=== PATIENT | female | born 1960 | race Caucasian/White ===

== ENCOUNTER 2018-01-19 14:15 | Emergency (ER) | payer BC ==
[2018-01-19] MEDS ORDERED: B-1250 MCG PO (17:48)
[2018-01-19] MEDS ORDERED: VITAMIN D PO (17:48)
[2018-01-19] MEDS ORDERED: POTASSI19 PO (17:48)
[2018-01-19] MEDS ORDERED: VITAMI16 PO (17:49)
[2018-01-19] MEDS ORDERED: TORADOL PO (18:21)
[2018-01-19 18:24] VITALS: BP 140/78
== END 2018-01-19 18:27 | disposition home or self-care (01) | DRG 914 ==
LOC: ED 14:15
DX: S09.11XA Strain of muscle and tendon of head, initial encounter (principal); X50.0XXA Overexertion from strenuous movement or load, initial encounter; Y92.9 Unspecified place or not applicable

== ENCOUNTER 2020-10-04 01:04 | Emergency (ER) | payer SELFPAY ==
[~2020-10-04] VITALS: Ht 162.6 cm; Wt 68.0 kg
[~2020-10-04 01:04] MED LIST: B-1250 MCG PO; POTASSI19 PO; TORADOL PO; VITAMI16 PO; VITAMIN D PO
[2020-10-04] MEDS ORDERED: ONDANSETRON HCL8 MG PO (02:03)
[2020-10-04] MEDS ORDERED: PROTONIX40 M2 PO (02:03)
[2020-10-04 02:25] LABS: HEMATOCRIT 41.2 % (37.0-47.0); HEMOGLOBIN 12.6 g/dl (12.0-16.0); IMMATURE GRANULOCYTES 0.5 % (0.0-5.0); MEAN CELL VOLUME 88.8 fL CALC (80.0-100.0); MEAN CORPUSCULAR HGB 27.2 pG CALC (26.0-32.0); MEAN CORPUSCULAR HGB CONC 30.6 g/dL CAL (32.0-36.0); NEUT# 18.14 thou/uL (2.00-7.15); RED BLOOD COUNT 4.64 mill/uL (4.20-5.60); RED CELL DISTRI WIDTH 14.6 % (11.5-15.5)
[2020-10-04 02:39] LABS: ALBUMIN 3.6 g/dL (3.2-5.0); ALKALINE PHOSPHATASE 235 u/l (38-126); AMYLASE 57 u/l (30-110); ANION GAP 13 (6-22 (CALC)); BILIRUBIN, TOTAL 0.4 mg/dL (0.0-1.4); BUN 13 mg/dL (8-23); BUN/CREATININE RATIO 13 (12-20 (CALC)); CARBON DIOXIDE 28 mmol/l (22-30); CHLORIDE 100 mmol/l (95-108); GFR 56 ML/MIN (>=60 (CALC)); GFR FOR AFR.AMER. > 60 ML/MIN (>=60 (CALC)); LIPASE 46 u/l (23-300); POTASSIUM 4.8 mmol/l (3.5-5.1); SGOT/AST 27 u/l (9-36); SODIUM 136 mmol/l (137-146); TOTAL PROTEIN 7.2 g/dL (6.3-8.2)
[2020-10-04 02:51] LABS: MYOGLOBIN 18 ng/mL (0 - 62)
[2020-10-04 04:03] LABS: URINE BILIRUBIN - DIPSTICK NEGATIVE (NEGATIVE); URINE BLOOD DIPSTICK TRACE-INTACT (NEGATIVE); URINE COLOR YELLOW; URINE GLUCOSE - DIPSTICK NEGATIVE (NEGATIVE); URINE KETONE NEGATIVE (NEGATIVE); URINE PROTEIN - DIPSTICK NEGATIVE (NEG-TRACE); URINE SPECIFIC GRAVITY <=1.005; URINE UROBILINOGEN - DIPSTICK 0.2 E.U./dL (0.2)
[2020-10-04 04:09] LABS: URINE NITRITE - DIPSTICK POSITIVE (Negative)
[2020-10-04 04:10] LABS: URINE BACTERIA MANY hpf; URINE EPITHELIAL CELLS FEW EPI/hpf (0-FEW); URINE LEUK ESTERASE NEGATIVE (NEGATIVE)
[2020-10-04 08:06] VITALS: BP 114/745
--- NOTE | 2020-10-06 10:47 | NUR ---
Final urine culture results were sent via fax [phone] to the nurse at [facility]
== END 2020-10-04 09:31 | disposition short-term general hospital (02) | DRG 295 ==
LOC: ED 01:04
PROVIDERS: Emergency Medicine
DX: I82.220 Acute embolism and thrombosis of inferior vena cava (principal); N28.89 Other specified disorders of kidney and ureter; D72.829 Elevated white blood cell count, unspecified; R91.8 Other nonspecific abnormal finding of lung field; F17.200 Nicotine dependence, unspecified, uncomplicated; Z20.828 Contact with and (suspected) exposure to other viral communicable diseases
CPT/HCPCS: J1650; Q9967; S0164

== ENCOUNTER 2020-12-04 21:09 | Inpatient (IN) | payer MEDICAID ==
[~2020-12-04] VITALS: Ht 157.5 cm; Wt 57.0 kg
[~2020-12-04 21:09] MED LIST changes: +COMPAZINE10 MG PO; +DECADRON4 M1 PO; +ELIQUIS5 MG PO; +GABAPENTIN100 MG PO; +OMEPRAZOLE DR20 MG PO; +ONDANSETRON HCL8 MG PO; +PERCOCET 5/321 COMBO PO
[2020-12-04 22:40] LABS: HEMATOCRIT 31.9 % (37.0-47.0); HEMOGLOBIN 9.3 g/dl (12.0-16.0); IMMATURE GRANULOCYTES 1.1 % (0.0-5.0); MEAN CELL VOLUME 94.7 fL CALC (80.0-100.0); MEAN CORPUSCULAR HGB 27.6 pG CALC (26.0-32.0); MEAN CORPUSCULAR HGB CONC 29.2 g/dL CAL (32.0-36.0); NEUT# 12.67 thou/uL (2.00-7.15); RED BLOOD COUNT 3.37 mill/uL (4.20-5.60); RED CELL DISTRI WIDTH 16.9 % (11.5-15.5)
[2020-12-04 22:56] LABS: INTERNATIONAL NORMALIZED RATIO 1.2 RATIO (0.7-1.3); PROTHROMBIN TIME 11.8 SECONDS (9.0-12.5)
[2020-12-04 23:01] LABS: ALKALINE PHOSPHATASE 177 u/l (38-126); BUN 28 mg/dL (8-23); BUN/CREATININE RATIO 30 (12-20 (CALC)); CARBON DIOXIDE 19 mmol/l (22-30); CHLORIDE 100 mmol/l (95-108); CREATININE 0.9 mg/dL (0.5-1.0); ETHYL ALCOHOL 0 mg/dl (0-30); GFR > 60 ML/MIN (>=60 (CALC)); GFR FOR AFR.AMER. > 60 ML/MIN (>=60 (CALC)); SGOT/AST 56 u/l (9-36); SODIUM 126 mmol/l (137-146); TOTAL PROTEIN 5.9 g/dL (6.3-8.2)
[2020-12-04 23:02] LABS: ANION GAP 12 (6-22 (CALC)); POTASSIUM 5.3 mmol/l (3.5-5.1)
[2020-12-04 23:14] LABS: MYOGLOBIN 34 ng/mL (0 - 62)
[2020-12-05] VITALS (32 sets, daily range): BP systolic 84–134; BP diastolic 48–87
[2020-12-05] MEDS ORDERED: MORPHINE SUL15 MG PO (01:30)
[2020-12-05] MEDS ORDERED: OLANZAPINE10 MG PO (01:31)
[2020-12-05] MEDS ORDERED: COMPAZINE10 MG PO (01:33)
[2020-12-05] MEDS ORDERED: VITAMIN D22000 UNIT PO (01:35)
[2020-12-05 02:05] LABS: URINE BILIRUBIN - DIPSTICK NEGATIVE (NEGATIVE); URINE BLOOD DIPSTICK NEGATIVE (NEGATIVE); URINE COLOR YELLOW; URINE GLUCOSE - DIPSTICK NEGATIVE (NEGATIVE); URINE KETONE NEGATIVE (NEGATIVE); URINE LEUK ESTERASE NEGATIVE (NEGATIVE); URINE NITRITE - DIPSTICK NEGATIVE (Negative); URINE PROTEIN - DIPSTICK NEGATIVE (NEG-TRACE); URINE SPECIFIC GRAVITY 1.015; URINE UROBILINOGEN - DIPSTICK 0.2 E.U./dL (0.2)
[2020-12-05] MEDS ORDERED: [UNRECOGNIZED DRUG - OTHER] (02:09)
[2020-12-05 09:58] LABS: HEMATOCRIT 27.1 % (37.0-47.0); HEMOGLOBIN 8.1 g/dl (12.0-16.0); IMMATURE GRANULOCYTES 3.7 % (0.0-5.0); MEAN CELL VOLUME 91.6 fL CALC (80.0-100.0); MEAN CORPUSCULAR HGB 27.4 pG CALC (26.0-32.0); MEAN CORPUSCULAR HGB CONC 29.9 g/dL CAL (32.0-36.0); NEUT# 10.94 thou/uL (2.00-7.15); RED BLOOD COUNT 2.96 mill/uL (4.20-5.60); RED CELL DISTRI WIDTH 16.5 % (11.5-15.5)
[2020-12-05 10:22] LABS: ANION GAP 10 (6-22 (CALC)); BUN 20 mg/dL (8-23); BUN/CREATININE RATIO 27 (12-20 (CALC)); CARBON DIOXIDE 20 mmol/l (22-30); CHLORIDE 108 mmol/l (95-108); CREATININE 0.7 mg/dL (0.5-1.0); GFR > 60 ML/MIN (>=60 (CALC)); GFR FOR AFR.AMER. > 60 ML/MIN (>=60 (CALC)); POTASSIUM 4.3 mmol/l (3.5-5.1)
[2020-12-05 10:35] LABS: SODIUM 134 mmol/l (137-146)
[2020-12-06] VITALS (18 sets, daily range): BP systolic 85–151; BP diastolic 51–83
[2020-12-06 06:23] LABS: HEMATOCRIT 21.4 % (37.0-47.0); IMMATURE GRANULOCYTES 2.1 % (0.0-5.0); MEAN CELL VOLUME 90.3 fL CALC (80.0-100.0); MEAN CORPUSCULAR HGB 27.4 pG CALC (26.0-32.0); MEAN CORPUSCULAR HGB CONC 30.4 g/dL CAL (32.0-36.0); NEUT# 4.68 thou/uL (2.00-7.15); RED BLOOD COUNT 2.37 mill/uL (4.20-5.60); RED CELL DISTRI WIDTH 16.6 % (11.5-15.5)
[2020-12-06 06:39] LABS: ANION GAP 7 (6-22 (CALC)); BUN 8 mg/dL (8-23); BUN/CREATININE RATIO 16 (12-20 (CALC)); CARBON DIOXIDE 20 mmol/l (22-30); CHLORIDE 109 mmol/l (95-108); CREATININE 0.5 mg/dL (0.5-1.0); GFR > 60 ML/MIN (>=60 (CALC)); GFR FOR AFR.AMER. > 60 ML/MIN (>=60 (CALC)); POTASSIUM 4.3 mmol/l (3.5-5.1); SODIUM 132 mmol/l (137-146)
[2020-12-06 06:50] LABS: HEMOGLOBIN 6.5 g/dl (12.0-16.0)
[2020-12-07 01:00] VITALS: BP 119/60
[2020-12-07 03:00] VITALS: BP 103/59
[2020-12-07 05:00] VITALS: BP 108/58
[2020-12-07 05:19] LABS: HEMATOCRIT 26.5 % (37.0-47.0); HEMOGLOBIN 8.2 g/dl (12.0-16.0); MEAN CELL VOLUME 90.8 fL CALC (80.0-100.0); MEAN CORPUSCULAR HGB 28.1 pG CALC (26.0-32.0); MEAN CORPUSCULAR HGB CONC 30.9 g/dL CAL (32.0-36.0); RED BLOOD COUNT 2.92 mill/uL (4.20-5.60)
[2020-12-07 05:40] LABS: ANION GAP 7 (6-22 (CALC)); BUN 7 mg/dL (8-23); BUN/CREATININE RATIO 12 (12-20 (CALC)); CARBON DIOXIDE 21 mmol/l (22-30); CHLORIDE 109 mmol/l (95-108); CREATININE 0.6 mg/dL (0.5-1.0); GFR > 60 ML/MIN (>=60 (CALC)); GFR FOR AFR.AMER. > 60 ML/MIN (>=60 (CALC)); POTASSIUM 4.3 mmol/l (3.5-5.1); SODIUM 132 mmol/l (137-146)
[2020-12-07 07:00] VITALS: BP 136/71
[2020-12-07 08:00] VITALS: BP 123/75
[2020-12-07 09:52] VITALS: BP 119/77
== END 2020-12-07 10:30 | disposition home health service (06) | DRG 91 ==
LOC: ED 21:09 → ED-I 12-05 02:41 → ED 12-05 03:22 → ICU 12-05 03:23
PROVIDERS: Family Medicine; Internal Medicine; ADMIT Internal Medicine; ATTEND Internal Medicine
PROC: 30233N1 Transfusion of Nonautologous Red Blood Cells into Peripheral Vein, Percutaneous Approach (ICD-10-PCS; principal; 2020-12-06)
DX: G92 Toxic encephalopathy (principal); G93.41 Metabolic encephalopathy; E87.1 Hypo-osmolality and hyponatremia; C34.01 Malignant neoplasm of right main bronchus; C79.70 Secondary malignant neoplasm of unspecified adrenal gland; T40.2X5A Adverse effect of other opioids, initial encounter; T40.7X5A Adverse effect of cannabis (derivatives), initial encounter; I95.9 Hypotension, unspecified; E86.0 Dehydration; E87.5 Hyperkalemia; D64.81 Anemia due to antineoplastic chemotherapy; D70.1 Agranulocytosis secondary to cancer chemotherapy; T45.1X5A Adverse effect of antineoplastic and immunosuppressive drugs, initial encounter; Z79.01 Long term (current) use of anticoagulants; Z87.891 Personal history of nicotine dependence; Z79.899 Other long term (current) drug therapy; Z86.718 Personal history of other venous thrombosis and embolism
CPT/HCPCS: J1442; J1650; P9016

== ENCOUNTER 2020-12-17 13:34 | Emergency (ER) | payer MEDICAID ==
[~2020-12-17] VITALS: Ht 157.5 cm; Wt 61.2 kg
[~2020-12-17 13:34] MED LIST changes: +MORPHINE SUL15 MG PO; +OLANZAPINE10 MG PO; +VITAMIN D22000 UNIT PO; +[UNRECOGNIZED DRUG - OTHER]
[2020-12-17 15:06] LABS: IMMATURE GRANULOCYTES 0.7 % (0.0-5.0); MEAN CORPUSCULAR HGB 27.3 pG CALC (26.0-32.0); MEAN CORPUSCULAR HGB CONC 29.7 g/dL CAL (32.0-36.0); NEUT# 3.75 thou/uL (2.00-7.15); RED BLOOD COUNT 3.74 mill/uL (4.20-5.60); RED CELL DISTRI WIDTH 17.2 % (11.5-15.5)
[2020-12-17 15:16] LABS: HEMATOCRIT 34.4 % (37.0-47.0); HEMOGLOBIN 10.2 g/dl (12.0-16.0)
[2020-12-17 15:23] LABS: ALBUMIN 2.6 g/dL (3.2-5.0); ANION GAP 11 (6-22 (CALC)); CARBON DIOXIDE 25 mmol/l (22-30); CHLORIDE 106 mmol/l (95-108); CREATININE 0.7 mg/dL (0.5-1.0); GFR > 60 ML/MIN (>=60 (CALC)); GFR FOR AFR.AMER. > 60 ML/MIN (>=60 (CALC)); POTASSIUM 4.3 mmol/l (3.5-5.1); SGOT/AST 46 u/l (9-36); SODIUM 137 mmol/l (137-146); TOTAL PROTEIN 5.5 g/dL (6.3-8.2)
[2020-12-17 15:43] LABS: BUN 8 mg/dL (8-23); BUN/CREATININE RATIO 11 (12-20 (CALC))
[2020-12-17 15:44] LABS: ALKALINE PHOSPHATASE 368 u/l (38-126); BILIRUBIN, TOTAL 0.2 mg/dL (0.0-1.4)
[2020-12-17 16:44] VITALS: BP 154/81
== END 2020-12-17 16:43 | disposition home or self-care (01) ==
LOC: ED 13:34
DX: K12.1 Other forms of stomatitis (principal); C34.90 Malignant neoplasm of unspecified part of unspecified bronchus or lung; Z79.899 Other long term (current) drug therapy

== ENCOUNTER 2020-12-24 17:26 | Emergency (ER) | payer MEDICAID ==
[~2020-12-24] VITALS: Ht 157.5 cm; Wt 70.0 kg
[2020-12-24 20:03] LABS: URINE BILIRUBIN - DIPSTICK NEGATIVE (NEGATIVE); URINE BLOOD DIPSTICK NEGATIVE (NEGATIVE); URINE COLOR YELLOW; URINE GLUCOSE - DIPSTICK NEGATIVE (NEGATIVE); URINE KETONE NEGATIVE (NEGATIVE); URINE LEUK ESTERASE TRACE (NEGATIVE); URINE PROTEIN - DIPSTICK NEGATIVE (NEG-TRACE); URINE UROBILINOGEN - DIPSTICK 0.2 E.U./dL (0.2)
[2020-12-24 20:13] LABS: URINE NITRITE - DIPSTICK POSITIVE (Negative)
[2020-12-24] MEDS ORDERED: CLARITIN10 M2 PO (20:13)
[2020-12-24 20:17] LABS: URINE BACTERIA MODERATE hpf
[2020-12-24 20:23] LABS: ALKALINE PHOSPHATASE 269 u/l (38-126); ANION GAP 12 (6-22 (CALC)); BUN 13 mg/dL (8-23); BUN/CREATININE RATIO 22 (12-20 (CALC)); CARBON DIOXIDE 23 mmol/l (22-30); CHLORIDE 108 mmol/l (95-108); CREATININE 0.6 mg/dL (0.5-1.0); GFR > 60 ML/MIN (>=60 (CALC)); GFR FOR AFR.AMER. > 60 ML/MIN (>=60 (CALC)); POTASSIUM 4.8 mmol/l (3.5-5.1); SODIUM 138 mmol/l (137-146); TOTAL PROTEIN 6.2 g/dL (6.3-8.2)
[2020-12-24 20:24] LABS: ALBUMIN 3.3 g/dL (3.2-5.0); BILIRUBIN, TOTAL 0.5 mg/dL (0.0-1.4); SGOT/AST 93 u/l (9-36)
[2020-12-24 20:50] LABS: HEMATOCRIT 32.9 % (37.0-47.0); HEMOGLOBIN 9.7 g/dl (12.0-16.0); IMMATURE GRANULOCYTES 18.6 % (0.0-5.0); MEAN CELL VOLUME 94.3 fL CALC (80.0-100.0); MEAN CORPUSCULAR HGB 27.8 pG CALC (26.0-32.0); MEAN CORPUSCULAR HGB CONC 29.5 g/dL CAL (32.0-36.0); PLATELET COUNT 561 thou/uL (130-400); RED BLOOD COUNT 3.49 mill/uL (4.20-5.60)
[2020-12-24] MEDS ORDERED: CIPROFLOXACN500 MG PO (21:13)
[2020-12-24 21:30] VITALS: BP 116/70
[2020-12-24] MEDS ORDERED: NEULASTA6 MG/0.6 M IM (21:46)
[2020-12-24 22:21] LABS: BAND 0 % (0-8)
[2020-12-25 08:39] LABS: MANUAL DIFFERENTIAL YES
== END 2020-12-24 21:35 | disposition home or self-care (01) ==
LOC: ED 17:26
PROVIDERS: Emergency Medicine
DX: D72.829 Elevated white blood cell count, unspecified (principal); N39.0 Urinary tract infection, site not specified; B96.1 Klebsiella pneumoniae [K. pneumoniae] as the cause of diseases classified elsewhere; C34.90 Malignant neoplasm of unspecified part of unspecified bronchus or lung; C79.9 Secondary malignant neoplasm of unspecified site; G89.3 Neoplasm related pain (acute) (chronic)

== ENCOUNTER 2021-02-06 20:38 | Observation (INO) | payer MEDICAID ==
[~2021-02-06] VITALS: Ht 157.5 cm; Wt 56.0 kg
[~2021-02-06 20:38] MED LIST changes: +CIPROFLOXACN500 MG PO; +CLARITIN10 M2 PO; +NEULASTA6 MG/0.6 M IM
--- NOTE | 2021-02-06 21:00 | NUR ---
PT WAS WHEELED TO AND PLACED IN BED.
--- NOTE | 2021-02-06 21:20 | NUR ---
PT RESTING HISTORY OF CA, SISTER AT BEDSIDE WILL MEDICAT ORDERED AND MONITOR B/P WELL
--- NOTE | 2021-02-06 21:31 | NUR ---
B/P IMPROVED, CLONIDINE HELD AT THIS TIME PER V.O
--- NOTE | 2021-02-06 21:50 | NUR ---
mdin to see pt once feeling improved, planned D/C, pt verbalizes agreeance and understanding
--- NOTE | 2021-02-06 22:56 | NUR ---
PT STATES FEELING A LITTLE BETTER SINCE HER NAP, PT EDUCATED REGARDING THE IMPORTANCE OF PO INTAKE WITH MEDICATIONS ESPECIALLY OPIATE PAIN MEDS AND CHEMOTHERAPEUTIC AGENTS, ETC..PT VERBALIZES UNDERSTANDING.
--- NOTE | 2021-02-06 23:24 | NUR ---
PT C/O MILD NAUSEA AGAIN, MD AWARE, WILL MEDICATE ORDERED
--- NOTE | 2021-02-06 23:25 | NUR ---
PT TOOK PO MEDICATION FOR NAUSEA THEN DRINK APPROX 80 ML OF LEMON SANTO DOMINGO SODA AND WITHIN 2-3 MIN PROMPTLY VOMITED.
--- NOTE | 2021-02-06 23:45 | NUR ---
PT CONTINUES TO C/O NAUSEA, SISTER ANXIOUS STATING SHE IS JUST WORRIED AND GOES ON ABOUT SHE CAN USUALLY CONTROL IT ETC...MULTIPLE ATTEMPTS TO EDUCATE REGARDING CANCER AND N/V DISEASE PROCESS.
[2021-02-07 00:37] LABS: HEMATOCRIT 33.1 % (37.0-47.0); HEMOGLOBIN 10.1 g/dl (12.0-16.0); IMMATURE GRANULOCYTES 0.3 % (0.0-5.0); MEAN CELL VOLUME 98.2 fL CALC (80.0-100.0); MEAN CORPUSCULAR HGB CONC 30.5 g/dL CAL (32.0-36.0); NEUT# 6.64 thou/uL (2.00-7.15); RED BLOOD COUNT 3.37 mill/uL (4.20-5.60); RED CELL DISTRI WIDTH 18.6 % (11.5-15.5)
[2021-02-07 00:55] LABS: ALBUMIN 3.2 g/dL (3.2-5.0); ALKALINE PHOSPHATASE 146 u/l (38-126); BILIRUBIN, TOTAL 0.7 mg/dL (0.0-1.4); BUN 5 mg/dL (8-23); BUN/CREATININE RATIO 8 (12-20 (CALC)); CARBON DIOXIDE 23 mmol/l (22-30); CHLORIDE 108 mmol/l (95-108); CREATININE 0.6 mg/dL (0.5-1.0); GFR > 60 ML/MIN (>=60 (CALC)); GFR FOR AFR.AMER. > 60 ML/MIN (>=60 (CALC)); LIPASE 82 u/l (23-300); SGOT/AST 61 u/l (9-36); SODIUM 137 mmol/l (137-146); TOTAL PROTEIN 5.8 g/dL (6.3-8.2)
[2021-02-07 01:04] LABS: ANION GAP 10 (6-22 (CALC)); POTASSIUM 3.7 mmol/l (3.5-5.1)
--- NOTE | 2021-02-07 01:08 | NUR ---
PORT ACCESSED USING STERILE TECHNIQUE EARLIER WITH EXCELLENT AND IMMEDIATE ASPIRATE NOTED, LABS DRAWN AND IVF STARTED ORDERED , PT AND SISTER AWARE OF PLANNED ADMISSION.
--- NOTE | 2021-02-07 02:14 | NUR ---
PT STATES SHE IS FEELING MUCH BETTER, COVID SWAB COMPLETED, PT TOLERATED WELL, AWAITING RESULTS FOR PLANNED ADMISSION
--- NOTE | 2021-02-07 03:00 | NUR ---
REPORT CALLED TO MED [facility]. ROOM [id number] ASSIGNED.
--- NOTE | 2021-02-07 03:03 | NUR ---
PT TRANSPORTED TO [facility], ALL BELONGINGS SENT WITH PT.
--- NOTE | 2021-02-07 03:04 | NUR ---
PT ARRIVE ON THE FLOOR VIA STRETCHER. AMBULATE X 1 ASSIST. PORT R SUBCLAVIN. NO COMPLAINT OF PAIN OR NAUSEA AT THIS MOMENT. PT IN BED AT THIS TIME. ASSESMENT COMPLETE. CALL LIGHT AND SIDE TABLE WITHIN REACH. WILL CONTINUE TO MONITOR.
[2021-02-07 03:10] VITALS: BP 113/76
--- NOTE | 2021-02-07 04:45 | NUR ---
PT COMPLAINING OF NAUSEA PRN ZOPHRAN GIVEN VIA IV. FLUIDS CONTINUE RUNNING. WILL CONTINUE TO MONITOR.
[2021-02-07 07:10] VITALS: BP 143/96
--- NOTE | 2021-02-07 07:29 | NUR ---
Patient is screened for PT intervention and no needs are identified at this time
--- NOTE | 2021-02-07 07:35 | NUR ---
PATIENT SITTING UP AT BEDSIDE. PATIENT STATES SHE IS A "LITTLE" NAUSEATED BUT IS MUCH BETTER THAN EARLIER. PATIENT STATES SHE ALWAYS HAS PAIN AND CURRENTLY SHE IS A 2 OUT OF 0-10. WAFER POLISHER DONE AT THIS TIME LUNG SOUNDS ARE DIMINISHED THROUGH OUT. SIDERAILS ARE UP X 2 CALL LIGHT AND PERSONAL ITEMS ARE WIHTIN REACH.
--- NOTE | 2021-02-07 12:05 | NUR ---
PATIENT RESTING IN BED AT THIS TIME. PATIENT DENIES PAIN BUT STATES SHE FEELS A LITTLE NAUSEATED. SIDERAILS ARE UP X 2 CALL LIGHT IN WITHIN REACH. PROVIDER MADE AWARE OF PATIENTS NAUSEA AT THIS TIME.
[2021-02-07 15:09] VITALS: BP 127/81
[2021-02-07 15:49] LABS: URINE BILIRUBIN - DIPSTICK NEGATIVE (NEGATIVE); URINE BLOOD DIPSTICK TRACE-LYSED (NEGATIVE); URINE COLOR YELLOW; URINE GLUCOSE - DIPSTICK NEGATIVE (NEGATIVE); URINE KETONE TRACE mg/dL (NEGATIVE); URINE PH 6.5 (4.5-8.0); URINE PROTEIN - DIPSTICK NEGATIVE (NEG-TRACE); URINE SPECIFIC GRAVITY 1.015; URINE UROBILINOGEN - DIPSTICK 0.2 E.U./dL (0.2)
[2021-02-07 15:53] LABS: URINE LEUK ESTERASE SMALL (NEGATIVE); URINE NITRITE - DIPSTICK NEGATIVE (Negative)
[2021-02-07 16:03] LABS: URINE SQUAMOUS EPITHELIAL CELL FEW EPI/hpf (0-FEW)
--- NOTE | 2021-02-07 16:05 | NUR ---
PATIENT UP TO BATHROOM TO TAKE A PARTIAL BATH AT THIS TIME. PATIENT DENEIS ALL OTHER NEEDS AND DENIES PAIN OR NAUSEA AT THIS TIME.
[2021-02-07 19:00] VITALS: BP 122/82
--- NOTE | 2021-02-07 20:00 | NUR ---
PATIENT SITTING ON THE SIDE OF THE BED-AWAKE ALERT AND ORIENTEDX3. IVF NS PATENT AND INFUSING VIA RIGHT UPPER CHEST PORT AT 125CC/HR. SITE IS HEALTHY AT THIS TIME. PATIENT WITH NO COMPLAINTS OF NAUSEA AT THIS TIME. UP TO THE BR TO VOID WITHOUT ANY DIFFICULTY. STEADY GAIT TO THE BR. LUNGS ARE CLEAR. PATIENT STATES THAT SHE HASN'T HAD A BM SINCE LAST WEEK-PATIENT OFFERED PRUNE JUICE AND OR MOM BUT DECLINES AT THIS TIME. STATES THAT THIS IS NOT UNUSUAL FOR HER. ABD X-RAY WAS DONE ORDERED. SAFETY PRECAUTIONS REINFORCED. CALL LIGHT IN REACH. WILL CONT TO MONITOR.
--- NOTE | 2021-02-07 22:09 | NUR ---
PATIENT RESTING IN BED BUT HAVING DIFFICULTY SLEEPING-STATES THAT SHE THINKS IT MIGHT BE BECAUSE OF THE STEROIDS. ASKING IF SHE COULD HAVE PERCOCET FOR PAIN THAT MIGHT HELP. CALL PLACED TO REUBEN MCBRIDE APRN AND ORDERS RECIEVED-PATIENT MEDICATED WITH SONATA 5MG FOR SLEEP ORDERED. PATIENT ABLE TO TAKE IN SOME SCOTTY CRACKERS AND ARMENIAN ICE WITHOU C/O OF NAUSEA. SAFETY PRECAUTIONS REINFORCED. CALL LIGHT IN REACH. WILL CONT TO MONITOR.
--- NOTE | 2021-02-08 00:54 | NUR ---
PATIENT RESTING IN BED AT THIS TIME POSITIONED ON RIGHT SIDE. RESPS ARE EVEN AND UNLABORED. IVF PATENT AND INFUSING VIA RIGHT UPPER CHEST POPRT AT 125CC/HR. SITE REMAINS HEALTHY. CALL LIGHT IN REACH. WILL CONT TO MONITOR.
[2021-02-08 04:30] VITALS: BP 146/78
--- NOTE | 2021-02-08 05:03 | NUR ---
PATIENT RESTING IN BED-LAB WORK DRAWN FROM RIGHT UPPER CHEST PORT WITHOUT ANY DIFFICULTY. GOOD BLOOD RETURN AND FLUSHED WITH NS PER PROTOCOL. IVF NS PATENT AND INFUSING AT 125CC/HR. SITE REMAINS HEALTHY. CALL LIGHT IN REACH. WILL CONT TO MONITOR.
[2021-02-08 05:33] LABS: HEMOGLOBIN 8.5 g/dl (12.0-16.0); MEAN CELL VOLUME 98.9 fL CALC (80.0-100.0); MEAN CORPUSCULAR HGB CONC 30.4 g/dL CAL (32.0-36.0); RED BLOOD COUNT 2.83 mill/uL (4.20-5.60); RED CELL DISTRI WIDTH 18.3 % (11.5-15.5)
[2021-02-08 05:46] LABS: ANION GAP 12 (6-22 (CALC)); BUN 3 mg/dL (8-23); BUN/CREATININE RATIO 7 (12-20 (CALC)); CARBON DIOXIDE 24 mmol/l (22-30); CHLORIDE 109 mmol/l (95-108); CREATININE 0.5 mg/dL (0.5-1.0); GFR > 60 ML/MIN (>=60 (CALC)); GFR FOR AFR.AMER. > 60 ML/MIN (>=60 (CALC)); MAGNESIUM 1.8 mg/dL (1.6-2.3); SODIUM 140 mmol/l (137-146)
[2021-02-08 05:56] LABS: POTASSIUM 4.8 mmol/l (3.5-5.1)
[2021-02-08 07:00] VITALS: BP 114/69
--- NOTE | 2021-02-08 07:05 | NUR ---
PATIENT LAYING IN BED AT THIS TIME. JEWEL BEARING DRILLER DONE SEE INTERVENTIONS. PATIENT DENIES ANY NAUSEA OR VOMITING AT THIS TIME. PATIENT PORT IS ACCESSED AND RETURNING BLOOD AND HAS CONTINUOUS NORMAL SALINE RUNNING AT THIS TIME. PATIENT DENIES ANY NEEDS CALL LIGHT IS WITHIN REACH AND SIDERAILS ARE UP X2.
[2021-02-08 08:42] VITALS: BP 114/69
[2021-02-08] MEDS ORDERED: PHENERGAN25 MG/TAB PO (10:22)
--- NOTE | 2021-02-08 11:30 | NUR ---
PORT DEACCESSED AT THIS TIME UNDER ASEPTIC TECHNIQUE. AREA CLEANSED AND BIO-PATCH PLACED AND TEGADERM APPLIED. PATIENT VERBALIZED UNDERSTANDING OF CARE.
--- NOTE | 2021-02-08 11:34 | NUR ---
PATIENT D/C AT THIS TIME PATIENT VERBALIZES UNDERSTANDING OF D/C INSTRUCTION.
--- NOTE | 2021-02-08 12:25 | NUR ---
Discharge instructions given. Patient verbalizes understanding of same. Discharged in stable condition via Wheelchair to Home with *Other. All belongings sent with pt.
--- NOTE | 2021-02-09 12:33 | NUR ---
URINE CULTURE SHOWS ENTEROCOCCUS SPECIES. PT WAS ASYMPTOMATIC FOR UTI. RESULTS CALLED TO [facility]. PT HAS F/U VISIT WITH DR GORDON, RESULTS FAXED TO HIS OFFICE. I ALSO CALLED PT WHO DOESNT HAVE ANY SYMPTOMS OF UTI, BUT ADVISED HER TO DISCUSS WITH DR GORDON IF THEY PRESENT BETWEEN NOW AND F/U VISIT 02/16
[2021-02-09] MEDS ORDERED: CIPROFLOXACN500 MG PO (12:59)
== END 2021-02-08 12:25 | disposition home or self-care (01) ==
LOC: ED 20:38 → ED-I 02-07 01:08 → ED 02-07 01:31 → MS2 02-07 01:32
PROVIDERS: Emergency Medicine; Nurse Practitioner; ADMIT Internal Medicine; ATTEND Internal Medicine
DX: R11.2 Nausea with vomiting, unspecified (principal); I10 Essential (primary) hypertension; C34.90 Malignant neoplasm of unspecified part of unspecified bronchus or lung; C79.9 Secondary malignant neoplasm of unspecified site; Z79.899 Other long term (current) drug therapy; Z92.21 Personal history of antineoplastic chemotherapy; Z87.891 Personal history of nicotine dependence; Z79.01 Long term (current) use of anticoagulants; Z20.822 Contact with and (suspected) exposure to COVID-19
CPT/HCPCS: G0378

== ENCOUNTER 2021-03-11 17:35 | Emergency (ER) | payer MEDICAID ==
[~2021-03-11 17:35] MED LIST changes: +PHENERGAN25 MG/TAB PO
[2021-03-11 18:28] LABS: HEMATOCRIT 37.3 % (37.0-47.0); HEMOGLOBIN 11.4 g/dl (12.0-16.0); IMMATURE GRANULOCYTES 0.2 % (0.0-5.0); MEAN CELL VOLUME 95.9 fL CALC (80.0-100.0); MEAN CORPUSCULAR HGB 29.3 pG CALC (26.0-32.0); MEAN CORPUSCULAR HGB CONC 30.6 g/dL CAL (32.0-36.0); NEUT# 5.79 thou/uL (2.00-7.15); RED BLOOD COUNT 3.89 mill/uL (4.20-5.60); RED CELL DISTRI WIDTH 15.1 % (11.5-15.5)
[2021-03-11 19:03] LABS: ALBUMIN 3.6 g/dL (3.2-5.0); ALKALINE PHOSPHATASE 145 u/l (38-126); ANION GAP 11 (6-22 (CALC)); BILIRUBIN, TOTAL 0.6 mg/dL (0.0-1.4); BUN 7 mg/dL (8-23); BUN/CREATININE RATIO 7 (12-20 (CALC)); CARBON DIOXIDE 25 mmol/l (22-30); CHLORIDE 104 mmol/l (95-108); CREATININE 0.9 mg/dL (0.5-1.0); GFR > 60 ML/MIN (>=60 (CALC)); GFR FOR AFR.AMER. > 60 ML/MIN (>=60 (CALC)); LIPASE 56 u/l (23-300); SGOT/AST 36 u/l (9-36); SODIUM 135 mmol/l (137-146); TOTAL PROTEIN 6.4 g/dL (6.3-8.2)
[2021-03-11 19:34] LABS: URINE BILIRUBIN - DIPSTICK NEGATIVE (NEGATIVE); URINE BLOOD DIPSTICK TRACE-LYSED (NEGATIVE); URINE COLOR YELLOW; URINE GLUCOSE - DIPSTICK NEGATIVE (NEGATIVE); URINE KETONE NEGATIVE (NEGATIVE); URINE LEUK ESTERASE TRACE (NEGATIVE); URINE NITRITE - DIPSTICK NEGATIVE (Negative); URINE PROTEIN - DIPSTICK NEGATIVE (NEG-TRACE); URINE SPECIFIC GRAVITY <=1.005; URINE UROBILINOGEN - DIPSTICK 0.2 E.U./dL (0.2)
[2021-03-11] MEDS ORDERED: PHENERGAN25 MG/TAB PO (21:12)
[2021-03-11 21:33] VITALS: BP 107/67
== END 2021-03-11 21:40 | disposition home or self-care (01) ==
LOC: ED 17:35
PROVIDERS: Emergency Medicine
DX: R11.0 Nausea (principal); C34.90 Malignant neoplasm of unspecified part of unspecified bronchus or lung; C79.9 Secondary malignant neoplasm of unspecified site; Z86.79 Personal history of other diseases of the circulatory system; Z92.21 Personal history of antineoplastic chemotherapy

== ENCOUNTER 2022-12-30 19:18 | Emergency (ER) | payer OTHER ==
[~2022-12-30] VITALS: Ht 157.5 cm; Wt 151.0 kg
[2022-12-30] VITALS (8 sets, daily range): BP systolic 108–143; BP diastolic 67–92
[2022-12-30 20:57] LABS: BASO% 0.6 % (0-3); EOS% 0.1 % (0-8); HEMATOCRIT 34.5 % (37.0-47.0); HEMOGLOBIN 11.1 g/dl (12.0-16.0); IMMATURE GRANULOCYTES 0.2 % (0.0-5.0); LYMPH% 17.8 % (15-41); MEAN CELL VOLUME 90.8 fL CALC (80.0-100.0); MEAN CORPUSCULAR HGB 29.2 pG CALC (26.0-32.0); MEAN CORPUSCULAR HGB CONC 32.2 g/dL CAL (32.0-36.0); MONO% 1.9 % (2-13); NEUT# 6.6 thou/uL (2.00-7.15); NEUT% 79.4 % (42-76); RED BLOOD COUNT 3.8 mill/uL (4.20-5.60); RED CELL DISTRI WIDTH 13.1 % (11.5-15.5)
[2022-12-30 21:12] LABS: ALBUMIN 4.3 g/dL (3.2-5.0); BILIRUBIN, TOTAL 0.4 mg/dL (0.02-1.3); CREATININE 1.5 mg/dL (0.5-1.0); POTASSIUM 4.2 mmol/l (3.5-5.1); TOTAL PROTEIN 6.8 g/dL (6.3-8.2)
[2022-12-30 21:20] LABS: MAGNESIUM 2.9 mg/dL (1.6-2.3)
[2022-12-30 21:55] LABS: URINE BILIRUBIN - DIPSTICK NEGATIVE (NEGATIVE); URINE BLOOD DIPSTICK TRACE-INTACT (NEGATIVE); URINE COLOR YELLOW; URINE GLUCOSE - DIPSTICK NEGATIVE (NEGATIVE); URINE KETONE NEGATIVE (NEGATIVE); URINE LEUK ESTERASE NEGATIVE (NEGATIVE); URINE PROTEIN - DIPSTICK TRACE mg/dL (NEG-TRACE); URINE SPECIFIC GRAVITY 1.015; URINE UROBILINOGEN - DIPSTICK 0.2 E.U./dL (0.2)
[2022-12-30 21:56] LABS: TSH, 3RD GENERATION 30.8 uIU/mL (0.47 - 4.68)
[2022-12-30 21:57] LABS: URINE NITRITE - DIPSTICK POSITIVE (Negative)
[2022-12-30] MEDS ORDERED: TRAZODONE50 MG PO (22:01)
[2022-12-30] MEDS ORDERED: LEVOTHYROXIN100 MCG PO (22:01)
[2022-12-30 22:02] LABS: URINE BACTERIA MANY hpf; URINE SQUAMOUS EPITHELIAL CELL FEW EPI/hpf (0-FEW)
[2022-12-30] MEDS ORDERED: MIRALAX17 GM PO (22:14)
[2022-12-30] MEDS ORDERED: CITRATE OF MEGNESIA PO (22:14)
[2022-12-30] MEDS ORDERED: BACTRIM DS1 TAB PO (22:14)
== END 2022-12-30 22:49 | disposition home or self-care (01) ==
LOC: ED 19:18
PROVIDERS: Family Medicine
DX: K59.00 Constipation, unspecified (principal); N39.0 Urinary tract infection, site not specified; E86.0 Dehydration; C34.90 Malignant neoplasm of unspecified part of unspecified bronchus or lung; C79.9 Secondary malignant neoplasm of unspecified site; B96.1 Klebsiella pneumoniae [K. pneumoniae] as the cause of diseases classified elsewhere; Z79.899 Other long term (current) drug therapy; Z20.822 Contact with and (suspected) exposure to COVID-19

== ENCOUNTER 2023-01-29 11:00 | Emergency (ER) | payer OTHER ==
[~2023-01-29] VITALS: Ht 157.5 cm; Wt 67.1 kg
[~2023-01-29 11:00] MED LIST changes: +BACTRIM DS1 TAB PO; +CITRATE OF MEGNESIA PO; +LEVOTHYROXIN100 MCG PO; +MIRALAX17 GM PO; +TRAZODONE50 MG PO
[2023-01-29 12:15] VITALS: BP 129/85
[2023-01-29 12:15] LABS: ALBUMIN 4.4 g/dL (3.2-5.0); BILIRUBIN, TOTAL 0.4 mg/dL (0.02-1.3); CREATININE 1.3 mg/dL (0.5-1.0); MEAN CORPUSCULAR HGB 31.3 pG CALC (26.0-32.0); POTASSIUM 3.6 mmol/l (3.5-5.1); RED BLOOD COUNT 2.91 mill/uL (4.20-5.60); RED CELL DISTRI WIDTH 18.4 % (11.5-15.5); TOTAL PROTEIN 7.1 g/dL (6.3-8.2)
[2023-01-29 12:30] VITALS: BP 111/78
[2023-01-29 12:46] VITALS: BP 111/52
[2023-01-29 12:52] LABS: HEMATOCRIT 28.4 % (37.0-47.0); HEMOGLOBIN 9.1 g/dl (12.0-16.0); MEAN CELL VOLUME 97.6 fL CALC (80.0-100.0)
[2023-01-29 12:53] LABS: MANUAL DIFFERENTIAL YES; PLATELET COUNT 156 thou/uL (130-400)
[2023-01-29 12:59] LABS: BAND 1 % (0-8); PLATELET ESTIMATE NORMAL
[2023-01-29 13:00] VITALS: BP 118/75
[2023-01-29 13:46] LABS: URINE BILIRUBIN - DIPSTICK NEGATIVE (NEGATIVE); URINE BLOOD DIPSTICK TRACE-INTACT (NEGATIVE); URINE COLOR YELLOW; URINE GLUCOSE - DIPSTICK NEGATIVE (NEGATIVE); URINE KETONE NEGATIVE (NEGATIVE); URINE LEUK ESTERASE TRACE (NEGATIVE); URINE NITRITE - DIPSTICK POSITIVE (Negative); URINE PROTEIN - DIPSTICK NEGATIVE (NEG-TRACE); URINE UROBILINOGEN - DIPSTICK 0.2 E.U./dL (0.2)
[2023-01-29 13:51] LABS: URINE BACTERIA MANY hpf; URINE RBC 0-2 RBC/hpf (0-5)
[2023-01-29] MEDS ORDERED: KEFLEX500 MG PO (17:14)
[2023-01-29 17:17] VITALS: BP 118/75
== END 2023-01-29 17:48 | disposition home or self-care (01) ==
LOC: ED 11:00
PROVIDERS: Family Medicine
DX: N39.0 Urinary tract infection, site not specified (principal); R11.0 Nausea; C34.90 Malignant neoplasm of unspecified part of unspecified bronchus or lung; C79.9 Secondary malignant neoplasm of unspecified site; D64.81 Anemia due to antineoplastic chemotherapy; T45.1X5A Adverse effect of antineoplastic and immunosuppressive drugs, initial encounter; B96.20 Unspecified Escherichia coli [E. coli] as the cause of diseases classified elsewhere; Z79.899 Other long term (current) drug therapy; Z95.828 Presence of other vascular implants and grafts; Z20.822 Contact with and (suspected) exposure to COVID-19
CPT/HCPCS: Q9967

== ENCOUNTER 2023-03-23 20:59 | Emergency (ER) | payer MEDICARE, OTHER ==
[~2023-03-23] VITALS: Ht 157.5 cm; Wt 64.0 kg
[~2023-03-23 20:59] MED LIST changes: +KEFLEX500 MG PO
[2023-03-23 22:43] LABS: HEMATOCRIT 22.9 % (37.0-47.0); MEAN CORPUSCULAR HGB 33.6 pG CALC (26.0-32.0); RED BLOOD COUNT 2.11 mill/uL (4.20-5.60); RED CELL DISTRI WIDTH 15.4 % (11.5-15.5)
[2023-03-23 22:55] LABS: ALBUMIN 3.6 g/dL (3.2-5.0); AMYLASE 36 u/l (30-110); ANION GAP 10 (6-22 (CALC)); BILIRUBIN, TOTAL 0.4 mg/dL (0.02-1.3); CARBON DIOXIDE 20 mmol/l (22-30); CHLORIDE 109 mmol/l (95-108); CREATININE 1.2 mg/dL (0.5-1.0); GFR FOR AFR.AMER. 55 ML/MIN (>=60 (CALC)); GFR OTHER RACES 45 ML/MIN (>=60 (CALC)); LIPASE 26 u/l (23-300); POTASSIUM 3.9 mmol/l (3.5-5.1); SGOT/AST 23 u/l (9-36); SODIUM 135 mmol/l (137-146); TOTAL PROTEIN 5.9 g/dL (6.3-8.2)
[2023-03-23 22:56] LABS: ALKALINE PHOSPHATASE 95 u/l (38-126); BUN 31 mg/dL (8-23); BUN/CREATININE RATIO 26 (12-20 (CALC))
[2023-03-23 22:59] LABS: HEMOGLOBIN 7.1 g/dl (12.0-16.0); MEAN CELL VOLUME 108.5 fL CALC (80.0-100.0)
[2023-03-23 23:00] LABS: EOS% 0.3 % (0-8); IMMATURE GRANULOCYTES 0.3 % (0.0-5.0); LYMPH% 50.1 % (15-41); MONO% 13.5 % (2-13); NEUT# 1.36 thou/uL (2.00-7.15); NEUT% 35.8 % (42-76)
[2023-03-23 23:12] LABS: INTERNATIONAL NORMALIZED RATIO 1.1 RATIO (0.7-1.3); PROTHROMBIN TIME 10.9 SECONDS (9.0-12.5)
[2023-03-24 01:27] VITALS: BP 128/88
[2023-03-24 01:32] VITALS: BP 122/87
[2023-03-24 01:47] LABS: URINE BILIRUBIN - DIPSTICK NEGATIVE (NEGATIVE); URINE BLOOD DIPSTICK MODERATE (NEGATIVE); URINE COLOR YELLOW; URINE GLUCOSE - DIPSTICK NEGATIVE (NEGATIVE); URINE KETONE NEGATIVE (NEGATIVE); URINE LEUK ESTERASE MODERATE (NEGATIVE); URINE NITRITE - DIPSTICK NEGATIVE (Negative); URINE PROTEIN - DIPSTICK 30 mg/dL (NEG-TRACE); URINE UROBILINOGEN - DIPSTICK 0.2 E.U./dL (0.2)
[2023-03-24 01:56] LABS: URINE RBC 50-100 RBC/hpf (0-5); URINE WBC 50-100 WBC/hpf (0-5)
[2023-03-24 01:57] LABS: URINE BACTERIA MANY hpf; URINE MUCUS FEW hpf (NONE-FEW); URINE SQUAMOUS EPITHELIAL CELL FEW EPI/hpf (0-FEW)
== END 2023-03-24 01:45 | disposition short-term general hospital (02) ==
LOC: ED 20:59
PROVIDERS: Emergency Medicine
PROC: 30233N1 Transfusion of Nonautologous Red Blood Cells into Peripheral Vein, Percutaneous Approach (ICD-10-PCS; principal; 2023-03-24)
DX: D64.81 Anemia due to antineoplastic chemotherapy (principal); T45.1X5A Adverse effect of antineoplastic and immunosuppressive drugs, initial encounter; D69.6 Thrombocytopenia, unspecified; R11.10 Vomiting, unspecified; R82.71 Bacteriuria; C34.90 Malignant neoplasm of unspecified part of unspecified bronchus or lung; C79.9 Secondary malignant neoplasm of unspecified site; Z20.822 Contact with and (suspected) exposure to COVID-19
CPT/HCPCS: P9016; S0164